=== PATIENT | female | born 1990 | race Caucasian/White ===

== ENCOUNTER 2023-03-31 17:23 | Inpatient (IN) | payer OTHER ==
[~2023-03-31] VITALS: Ht 162.6 cm; Wt 79.4 kg
[2023-03-31] MEDS ORDERED: IV NS 0.9% 1,000 ML BAG IV ONE (18:00)
[2023-03-31] MEDS ORDERED: ONDANSETRON HCL/PF 4 MG/2 ML VIAL IVP ONE (18:00)
[2023-03-31] MEDS ORDERED: FAMOTIDINE/PF INJ 20 MG/2 ML VIAL IV ONE ×2 (18:00→18:50)
[2023-03-31 18:21] LABS: BASOPHILS % (AUTO) 0.1 % (0.0-2.0); EOSINOPHILS % (AUTO) 0.3 % (0.0-6.0); HEMATOCRIT 42 % (33-45); HEMOGLOBIN 14.3 g/dL (11.5-14.8); LYMPHOCYTES # (AUTO) 0.7 K/uL (0.8-4.8); LYMPHOCYTES % (AUTO) 6.5 % (20.0-44.0); MEAN CORPUSCULAR HEMOGLOBIN 33 PG (26.0-33.0); MEAN CORPUSCULAR HGB CONC 34 g/dl (31.0-36.0); MEAN CORPUSCULAR VOLUME 96 fL (82-100); MONOCYTES # (AUTO) 0.4 K/uL (0.1-1.30); MONOCYTES % (AUTO) 3.7 % (2.0-12.0); NEUTROPHILS # (AUTO) 9.2 K/uL (1.8-8.9); NEUTROPHILS % (AUTO) 89.4 % (43.0-81.0); PLATELET COUNT (AUTO) 314 K/uL (150-450); RED BLOOD CELL COUNT(AUTO) 4.39 MIL/uL (4.0-5.2); RED CELL DISTRIBUTION WIDTH 12.3 % (11.5-15.0); WHITE BLOOD COUNT (AUTO) 10.2 K/uL (4.3-11.0)
[2023-03-31 18:41] LABS: CALCIUM, SERUM 8.6 mg/dL (8.5-10.1); CREATININE 0.8 mg/dL (0.6-1.3); POTASSIUM 3.6 mmol/L (3.5-5.1)
[2023-03-31 18:47] LABS: ALBUMIN 3.1 g/dL (3.4-5.0); BILIRUBIN,DIRECT 0.4 mg/dL (0.0-0.2); BILIRUBIN,TOTAL 0.7 mg/dL (0.2-1.0); TOTAL PROTEIN, SERUM 6.5 g/dL (6.4-8.2)
[2023-03-31] MEDS ORDERED: MORPHINE SULFATE INJ 4 MG/ML DISP.SYRIN ONE ×2 (18:49→18:56)
[2023-03-31] MEDS ORDERED: ONDANSETRON HCL/PF 4 MG/2 ML VIAL ONE (18:49)
[2023-03-31 19:47] LABS: APPEARANCE,URINE CLEAR (CLEAR); BILIRUBIN,URINE NEGATIVE (NEGATIVE); BLOOD, URINE 2+ Ery/uL (NEGATIVE); COLOR,URINE YELLOW (YELLOW); KETONES,URINE NEGATIVE (NEGATIVE); LEUKOCYTE ESTERASE ,URINE NEGATIVE (NEGATIVE); NITRITE, URINE NEGATIVE (NEGATIVE); PH,URINE 8.5 (5.0-8.0); PROTEIN,URINE NEGATIVE (NEGATIVE); UGLUCOSE NEGATIVE (NEGATIVE)
[2023-03-31 19:53] LABS: PREGNANCY TEST URINE QUAL NEGATIVE (NEGATIVE)
[2023-03-31] MEDS ORDERED: KETOROLAC TROMETHAMINE INJ 30 MG/ML VIAL IV ONE (20:00)
[2023-03-31 20:08] LABS: ADD URINE CULTURE YES; BACTERIA,URINE 2+ /HPF (None Seen); SQUAMOUS EPITHELIAL CELL,UR 0-2 /HPF (None Seen); URINE AMORPHOUS URATE Moderate /HPF (None Seen); WBC,URINE NONE SEEN /HPF (0-3)
[2023-03-31] MEDS ORDERED: KETOROLAC TROMETHAMINE INJ 30 MG/ML VIAL ONE (20:08)
[2023-03-31] MEDS ORDERED: ACETAMINOPHEN 325 MG TABLET PO PRN (23:30)
[2023-03-31] MEDS ORDERED: MAGNESIUM HYDROXIDE 30 ML UDC PO PRN (23:30)
[2023-04-01] MEDS: MORPHINE SULFATE INJ 2 MG/ML DISP.SYRIN IV PRN ×3 (00:49→18:03)
[2023-04-01] MEDS: IV D5/0.45 NACL 1,000 ML IV PRN ×2 (01:26→14:45)
[2023-04-01 02:00] VITALS: BP 104/71; TEMP 98; O2SAT 98
[2023-04-01 06:59] LABS: BASOPHILS % (AUTO) 0.4 % (0.0-2.0); EOSINOPHILS # (AUTO) 0.1 K/uL (0.0-0.7); EOSINOPHILS % (AUTO) 2.2 % (0.0-6.0); HEMATOCRIT 39 % (33-45); HEMOGLOBIN 13.2 g/dL (11.5-14.8); LYMPHOCYTES # (AUTO) 1.3 K/uL (0.8-4.8); LYMPHOCYTES % (AUTO) 20.6 % (20.0-44.0); MEAN CORPUSCULAR HEMOGLOBIN 33 PG (26.0-33.0); MEAN CORPUSCULAR HGB CONC 34 g/dl (31.0-36.0); MEAN CORPUSCULAR VOLUME 96 fL (82-100); MONOCYTES # (AUTO) 0.5 K/uL (0.1-1.30); MONOCYTES % (AUTO) 8.4 % (2.0-12.0); NEUTROPHILS # (AUTO) 4.3 K/uL (1.8-8.9); NEUTROPHILS % (AUTO) 68.4 % (43.0-81.0); PLATELET COUNT (AUTO) 314 K/uL (150-450); RED BLOOD CELL COUNT(AUTO) 4.05 MIL/uL (4.0-5.2); RED CELL DISTRIBUTION WIDTH 12.1 % (11.5-15.0); WHITE BLOOD COUNT (AUTO) 6.3 K/uL (4.3-11.0)
[2023-04-01 07:25] LABS: ALBUMIN 2.5 g/dL (3.4-5.0); BILIRUBIN,TOTAL 0.4 mg/dL (0.2-1.0); CALCIUM, SERUM 8.2 mg/dL (8.5-10.1); CREATININE 0.8 mg/dL (0.6-1.3); MAGNESIUM 2.4 mg/dL (1.8-2.4); PHOSPHORUS 3.6 mg/dL (2.5-4.9); POTASSIUM 3.8 mmol/L (3.5-5.1); TOTAL PROTEIN, SERUM 5.6 g/dL (6.4-8.2)
[2023-04-01] MEDS ORDERED: QULIPTA PO (08:03)
[2023-04-01] MEDS: PANTOPRAZOLE 40 MG VIAL IV SCH ×2 (09:00→10:08)
[2023-04-01 12:00] VITALS: BP 91/60; TEMP 97.9; O2SAT 97
[2023-04-01] MEDS: QULIPTA 60 MG PO SCH (14:41)
[2023-04-01 16:00] VITALS: BP 102/67; TEMP 97.9; O2SAT 98
[2023-04-01 20:00] VITALS: BP 108/78; TEMP 97.9; O2SAT 97
[2023-04-01] MEDS ORDERED: MORPHINE SULFATE INJ 2 MG/ML DISP.SYRIN IVP ONE (21:00)
[2023-04-02] MEDS: IV D5/0.45 NACL 1,000 ML IV PRN ×2 (04:44→17:35)
[2023-04-02] MEDS: MORPHINE SULFATE INJ 2 MG/ML DISP.SYRIN IV PRN ×2 (04:51→08:56)
[2023-04-02 06:56] LABS: BASOPHILS % (AUTO) 0.6 % (0.0-2.0); EOSINOPHILS # (AUTO) 0.2 K/uL (0.0-0.7); EOSINOPHILS % (AUTO) 4.1 % (0.0-6.0); HEMATOCRIT 39 % (33-45); HEMOGLOBIN 13.3 g/dL (11.5-14.8); LYMPHOCYTES # (AUTO) 1.2 K/uL (0.8-4.8); LYMPHOCYTES % (AUTO) 23.3 % (20.0-44.0); MEAN CORPUSCULAR HEMOGLOBIN 33 PG (26.0-33.0); MEAN CORPUSCULAR HGB CONC 35 g/dl (31.0-36.0); MEAN CORPUSCULAR VOLUME 96 fL (82-100); MONOCYTES # (AUTO) 0.4 K/uL (0.1-1.30); MONOCYTES % (AUTO) 7.6 % (2.0-12.0); NEUTROPHILS # (AUTO) 3.2 K/uL (1.8-8.9); NEUTROPHILS % (AUTO) 64.4 % (43.0-81.0); PLATELET COUNT (AUTO) 301 K/uL (150-450); RED BLOOD CELL COUNT(AUTO) 4.04 MIL/uL (4.0-5.2); RED CELL DISTRIBUTION WIDTH 12.2 % (11.5-15.0)
[2023-04-02 07:22] LABS: ALBUMIN 2.5 g/dL (3.4-5.0); BILIRUBIN,DIRECT 0.1 mg/dL (0.0-0.2); BILIRUBIN,TOTAL 0.4 mg/dL (0.2-1.0); CALCIUM, SERUM 8.3 mg/dL (8.5-10.1); CREATININE 0.8 mg/dL (0.6-1.3); PHOSPHORUS 3.5 mg/dL (2.5-4.9); POTASSIUM 3.6 mmol/L (3.5-5.1); TOTAL PROTEIN, SERUM 5.6 g/dL (6.4-8.2)
[2023-04-02] MEDS: PANTOPRAZOLE 40 MG TABLET.DR PO SCH (08:18)
[2023-04-02] MEDS: QULIPTA 60 MG PO SCH (10:47)
[2023-04-02] MEDS: HYDROMORPHONE 1 MG/1 ML DISP.SYRIN IV PRN ×2 (13:59→21:54)
[2023-04-02 16:00] VITALS: BP 98/56; TEMP 98.7; O2SAT 97
[2023-04-02 20:00] VITALS: BP 101/64; TEMP 97.9; O2SAT 97
[2023-04-02] MEDS: ONDANSETRON HCL/PF 4 MG/2 ML VIAL IVP PRN (21:34)
[2023-04-03] MEDS: IV D5/0.45 NACL 1,000 ML IV PRN ×2 (05:22→20:58)
[2023-04-03 07:02] LABS: PARTIAL THROMBOPLASTIN TIME 28.2 SEC (24.3-34.3); PROTHROMBIN TIME 10.6 SECS (9.2-11.1)
[2023-04-03 07:06] LABS: BASOPHILS % (AUTO) 0.6 % (0.0-2.0); EOSINOPHILS # (AUTO) 0.1 K/uL (0.0-0.7); HEMATOCRIT 39 % (33-45); HEMOGLOBIN 13.2 g/dL (11.5-14.8); LYMPHOCYTES # (AUTO) 1.4 K/uL (0.8-4.8); LYMPHOCYTES % (AUTO) 27.5 % (20.0-44.0); MEAN CORPUSCULAR HEMOGLOBIN 33 PG (26.0-33.0); MEAN CORPUSCULAR HGB CONC 34 g/dl (31.0-36.0); MEAN CORPUSCULAR VOLUME 96 fL (82-100); MONOCYTES # (AUTO) 0.4 K/uL (0.1-1.30); MONOCYTES % (AUTO) 8.6 % (2.0-12.0); NEUTROPHILS % (AUTO) 60.3 % (43.0-81.0); PLATELET COUNT (AUTO) 320 K/uL (150-450); RED BLOOD CELL COUNT(AUTO) 4.02 MIL/uL (4.0-5.2); RED CELL DISTRIBUTION WIDTH 11.9 % (11.5-15.0); WHITE BLOOD COUNT (AUTO) 4.9 K/uL (4.3-11.0)
[2023-04-03 07:34] LABS: ALBUMIN 2.4 g/dL (3.4-5.0); BILIRUBIN,DIRECT 0.1 mg/dL (0.0-0.2); BILIRUBIN,TOTAL 0.4 mg/dL (0.2-1.0); CALCIUM, SERUM 8.1 mg/dL (8.5-10.1); CREATININE 0.8 mg/dL (0.6-1.3); POTASSIUM 3.5 mmol/L (3.5-5.1); TOTAL PROTEIN, SERUM 5.5 g/dL (6.4-8.2)
[2023-04-03 08:00] VITALS: BP 94/58; TEMP 98.4; O2SAT 97
[2023-04-03] MEDS ORDERED: ROCURONIUM BROMIDE 50 MG/5 ML ONE ×2 (08:32)
[2023-04-03] MEDS ORDERED: MIDAZOLAM HCL 2 MG/2ML VIAL ONE (08:32)
[2023-04-03] MEDS ORDERED: FAMOTIDINE/PF INJ 20 MG/2 ML VIAL IV ONE (08:32)
[2023-04-03] MEDS ORDERED: FENTANYL PF 100MCG/2ML AMPUL ONE (08:32)
[2023-04-03] MEDS ORDERED: LIDOCAINE HCL/MPF 1% 30 ML VIAL IJ ONE (08:55)
[2023-04-03] MEDS ORDERED: BUPIVACAINE MPF 0.5% W/EPI INJ 30 ML VIAL ONE ×2 (08:56→09:02)
[2023-04-03] MEDS: PANTOPRAZOLE 40 MG TABLET.DR PO SCH (09:00)
[2023-04-03] MEDS: QULIPTA 60 MG PO SCH (09:00)
[2023-04-03] MEDS ORDERED: BACITRACIN/POLYMYXIN B 15 GM TUBE TP ONE (10:06)
[2023-04-03] MEDS ORDERED: HYDROMORPHONE 1 MG/1 ML DISP.SYRIN ONE (10:52)
[2023-04-03] MEDS: ACETAMINOPHEN 325 MG TABLET PO SCH ×3 (12:01→20:24)
[2023-04-03] MEDS: GABAPENTIN 100 MG CAPSULE PO SCH ×3 (12:01→20:37)
[2023-04-03] MEDS: CELECOXIB 100 MG CAPSULE PO SCH ×2 (12:02→13:20)
[2023-04-03] MEDS: ONDANSETRON HCL/PF 4 MG/2 ML VIAL IVP PRN (14:09)
[2023-04-03] MEDS: HYDROMORPHONE 1 MG/1 ML DISP.SYRIN IV PRN ×3 (14:52→22:36)
[2023-04-03 20:00] VITALS: BP 104/62; TEMP 98.1; O2SAT 95
[2023-04-04] MEDS: CELECOXIB 100 MG CAPSULE PO SCH ×3 (00:49→23:29)
[2023-04-04] MEDS: GABAPENTIN 100 MG CAPSULE PO SCH ×3 (04:37→19:58)
[2023-04-04] MEDS: ACETAMINOPHEN 325 MG TABLET PO SCH ×3 (04:37→19:58)
[2023-04-04 06:49] LABS: BASOPHILS % (AUTO) 0.2 % (0.0-2.0); EOSINOPHILS % (AUTO) 0.1 % (0.0-6.0); HEMATOCRIT 35 % (33-45); HEMOGLOBIN 12.3 g/dL (11.5-14.8); LYMPHOCYTES # (AUTO) 1.3 K/uL (0.8-4.8); MEAN CORPUSCULAR HEMOGLOBIN 34 PG (26.0-33.0); MEAN CORPUSCULAR HGB CONC 36 g/dl (31.0-36.0); MEAN CORPUSCULAR VOLUME 94 fL (82-100); MONOCYTES # (AUTO) 0.7 K/uL (0.1-1.30); MONOCYTES % (AUTO) 7.7 % (2.0-12.0); NEUTROPHILS # (AUTO) 6.7 K/uL (1.8-8.9); PLATELET COUNT (AUTO) 298 K/uL (150-450); RED BLOOD CELL COUNT(AUTO) 3.68 MIL/uL (4.0-5.2); RED CELL DISTRIBUTION WIDTH 11.9 % (11.5-15.0); WHITE BLOOD COUNT (AUTO) 8.6 K/uL (4.3-11.0)
[2023-04-04 07:07] LABS: CREATININE 0.8 mg/dL (0.6-1.3); POTASSIUM 3.2 mmol/L (3.5-5.1)
[2023-04-04 07:59] VITALS: BP 102/61; TEMP 98.4; O2SAT 97
[2023-04-04 08:00] VITALS: BP 102/61; TEMP 98.4; O2SAT 97
[2023-04-04] MEDS: QULIPTA 60 MG PO SCH (08:09)
[2023-04-04] MEDS: PANTOPRAZOLE 40 MG TABLET.DR PO SCH (08:09)
[2023-04-04] MEDS: HYDROMORPHONE 1 MG/1 ML DISP.SYRIN IV PRN ×3 (09:13→22:43)
[2023-04-04] MEDS ORDERED: POTASSIUM CHLORIDE 20 MEQ POWDER PACKET PO ONE (12:00)
[2023-04-04] MEDS: IV D5/0.45 NACL 1,000 ML IV PRN (12:15)
[2023-04-04 16:00] VITALS: BP_SYST 132; BP_SYST 98; BP_DIAS 61; BP_DIAS 80; TEMP 98; O2SAT 98
[2023-04-04 20:00] VITALS: BP_SYST 108; BP_SYST 122; BP_DIAS 63; BP_DIAS 64; TEMP 98.1; TEMP 99; O2SAT 96; O2SAT 97
[2023-04-05] MEDS: IV D5/0.45 NACL 1,000 ML IV PRN (03:52)
[2023-04-05] MEDS: ACETAMINOPHEN 325 MG TABLET PO SCH ×3 (03:59→20:01)
[2023-04-05] MEDS: GABAPENTIN 100 MG CAPSULE PO SCH ×3 (03:59→20:01)
[2023-04-05] MEDS: PANTOPRAZOLE 40 MG TABLET.DR PO SCH (08:14)
[2023-04-05] MEDS: QULIPTA 60 MG PO SCH (08:14)
[2023-04-05] MEDS: ONDANSETRON HCL/PF 4 MG/2 ML VIAL IVP PRN (08:18)
[2023-04-05] MEDS ORDERED: POTASSIUM CHLORIDE 20 MEQ TAB.PRT.SR PO ONE (09:00)
[2023-04-05] MEDS: HYDROMORPHONE 1 MG/1 ML DISP.SYRIN IV PRN ×2 (09:43→21:57)
[2023-04-05] MEDS: CELECOXIB 100 MG CAPSULE PO SCH ×2 (11:50→23:41)
[2023-04-05 12:47] LABS: ALBUMIN 2.6 g/dL (3.4-5.0); BILIRUBIN,TOTAL 0.3 mg/dL (0.2-1.0); CALCIUM, SERUM 8.3 mg/dL (8.5-10.1); CREATININE 0.7 mg/dL (0.6-1.3); POTASSIUM 3.8 mmol/L (3.5-5.1); TOTAL PROTEIN, SERUM 5.9 g/dL (6.4-8.2)
[2023-04-05 14:34] VITALS: BP 103/67; TEMP 98.2; O2SAT 100
[2023-04-05 16:55] VITALS: BP 114/69; TEMP 98; O2SAT 100
[2023-04-05 20:00] VITALS: BP 110/67; TEMP 98.7; O2SAT 98
[2023-04-06] MEDS: ACETAMINOPHEN 325 MG TABLET PO SCH ×3 (04:16→20:03)
[2023-04-06] MEDS: GABAPENTIN 100 MG CAPSULE PO SCH ×3 (04:16→20:03)
[2023-04-06 07:00] VITALS: BP 97/67; TEMP 96.4; O2SAT 98
[2023-04-06] MEDS: QULIPTA 60 MG PO SCH (08:25)
[2023-04-06] MEDS: PANTOPRAZOLE 40 MG TABLET.DR PO SCH (08:25)
[2023-04-06] MEDS: HYDROMORPHONE 1 MG/1 ML DISP.SYRIN IV PRN ×2 (08:29→23:03)
[2023-04-06] MEDS ORDERED: DOCU-141 PO (08:43)
[2023-04-06] MEDS ORDERED: HYDR-4303 PO (08:43)
[2023-04-06] MEDS: MAGNESIUM HYDROXIDE 30 ML UDC PO SCH ×4 (09:16→23:47)
[2023-04-06] MEDS: CELECOXIB 100 MG CAPSULE PO SCH ×2 (12:19→23:47)
[2023-04-06] MEDS: ONDANSETRON HCL/PF 4 MG/2 ML VIAL IVP PRN ×2 (12:30→18:11)
[2023-04-06 16:00] VITALS: BP 109/71; TEMP 98.3; O2SAT 93
[2023-04-06] MEDS: HYDROCODONE/APAP 5/325MG TABLET PO PRN (16:00)
[2023-04-06 20:00] VITALS: BP 108/63; TEMP 97.5; O2SAT 98
[2023-04-07] MEDS: GABAPENTIN 100 MG CAPSULE PO SCH ×3 (04:11→20:34)
[2023-04-07] MEDS: ACETAMINOPHEN 325 MG TABLET PO SCH ×3 (04:11→20:31)
[2023-04-07] MEDS: MAGNESIUM HYDROXIDE 30 ML UDC PO SCH ×4 (05:54→23:37)
[2023-04-07 07:00] VITALS: BP 108/67; TEMP 98.2; O2SAT 96
[2023-04-07] MEDS: PANTOPRAZOLE 40 MG TABLET.DR PO SCH (09:59)
[2023-04-07] MEDS: HYDROCODONE/APAP 5/325MG TABLET PO PRN ×3 (10:20→22:25)
[2023-04-07] MEDS: QULIPTA 60 MG PO SCH (11:09)
[2023-04-07] MEDS: CELECOXIB 100 MG CAPSULE PO SCH ×2 (12:34→23:38)
[2023-04-07] MEDS: ONDANSETRON HCL/PF 4 MG/2 ML VIAL IVP PRN (13:12)
[2023-04-07] MEDS ORDERED: ONDANSETRON HCL 4 MG/5 ML SOLUTION PO PRN (13:30)
[2023-04-07] MEDS ORDERED: ONDANSETRON 4 MG TAB.RAPDIS PO PRN (14:00)
[2023-04-07 16:00] VITALS: BP 107/58; TEMP 98.4; O2SAT 96
[2023-04-07 20:00] VITALS: BP 105/67; TEMP 97.7; O2SAT 97
[2023-04-08] MEDS: GABAPENTIN 100 MG CAPSULE PO SCH (03:41)
[2023-04-08] MEDS: ACETAMINOPHEN 325 MG TABLET PO SCH (03:41)
[2023-04-08] MEDS: MAGNESIUM HYDROXIDE 30 ML UDC PO SCH (05:34)
[2023-04-08 08:00] VITALS: BP 109/74; TEMP 98.2; O2SAT 94
[2023-04-08] MEDS: QULIPTA 60 MG PO SCH (09:17)
[2023-04-08] MEDS: PANTOPRAZOLE 40 MG TABLET.DR PO SCH (09:17)
== END 2023-04-08 12:20 | disposition home or self-care (01) | DRG 263 ==
LOC: ER 17:28 → MED 23:58
PROVIDERS: ADMIT Nurse Practitioner Family; ATTEND Internal Medicine
PROC: 0FT44ZZ Resection of Gallbladder, Percutaneous Endoscopic Approach (ICD-10-PCS; principal; 2023-04-03)
DX: K80.12 Calculus of gallbladder with acute and chronic cholecystitis without obstruction (principal); E44.1 Mild protein-calorie malnutrition; K76.0 Fatty (change of) liver, not elsewhere classified; I82.611 Acute embolism and thrombosis of superficial veins of right upper extremity; E88.09 Other disorders of plasma-protein metabolism, not elsewhere classified; K80.51 Calculus of bile duct without cholangitis or cholecystitis with obstruction; Z91.041 Radiographic dye allergy status; Z98.890 Other specified postprocedural states; G43.909 Migraine, unspecified, not intractable, without status migrainosus
CPT/HCPCS: 36415; 74181-TC; 76700-TC; 80048-TC; 80053-TC; 80076-TC; 81001; 83690-TC; 83735-TC; 84100-TC; 84703-TC; 85025-TC; 85610-TC; 85730-TC; 86850-TC; 87086-TC; 88304-TC; 93971-TC; 97110-TC; 97112-TC; 97116-TC; 97530-TC; 97535-TC; A4223; C9113; G0378; J0690; J1100; J1170; J1885; J2250; J2270; J2405; J2704; J3010; J3490; J7030; J7042; Q0162